=== PATIENT | male | born 2000 | race Two or more races ===

== ENCOUNTER → 2024-10-16 | Outpatient (CLI) | payer BC, SELFPAY ==
--- NOTE | 2024-10-16 | XR_ITS ---
Examination: Lumbar spine, 5 views Technique: Lumbar spine AP, lateral, coned lateral lower lumbar spine, bilateral obliques 5 views Exam date and time: October 16, 2024 1146 hours INDICATIONS: Low back pain radiating to the legs months. FINDINGS: Thoracolumbar levoscoliosis 8 degrees No lumbar fracture Mild diffuse lumbar disc narrowing No spondylolisthesis IMPRESSION: Mild diffuse lumbar disc narrowing
--- NOTE | 2024-10-16 | XR_ITS ---
Examination: Thoracic spine 3 views Technique one AP lateral coned lateral upper dorsal spine 3 views Exam date and time: October 16, 2024 1149 hours INDICATIONS: Mid back pain several months. FINDINGS: Thoracic dextroscoliosis 8 degrees No thoracic acute fracture No significant thoracic disc narrowing IMPRESSION: Thoracic dextroscoliosis 8 degrees
[2024-10-16 13:23] LABS: Collection Type, Urine Clean Catch
[2024-10-16 13:39] LABS: Basophils % (Auto) 0 % (0-2.5); Eosinophils # (Auto) 0.1 Thou/mm3 (0.0-0.5); Eosinophils % (Auto) 1 % (0-10); Hematocrit 42.3 % (41.0-53.0); Immature Granulocytes % (Auto) 0 % (0-0); Immature Granulocytes Auto 0.03 Thou/mm3 (0.00-0.00); Lymphocytes % (Auto) 20 % (10-50); Mean Corpuscular HGB Conc 33.1 g/dl (31.0-37.0); Mean Corpuscular Hemoglobin 26.3 pg (25.0-35.0); Mean Corpuscular Volume 80 fL (80-100); Monocytes # (Auto) 0.8 Thou/mm3 (0.0-0.8); Monocytes % (Auto) 8 % (0-12); Neutrophils # (Auto) 6.8 Thou/mm3 (1.8-7.7); Neutrophils % (Auto) 70 % (37-80); Nucleated Red Blood Cell % 0 /100 WBC (0); Platelet Count 349 Thou/mm3 (140-440); RDW Standard Deviation 40.9 fL (35.1-43.9); Red Blood Count 5.32 Miln/mm3 (4.50-5.90); White Blood Count 9.7 Thou/mm3 (3.8-10.6)
[2024-10-16 13:52] LABS: Bilirubin,Urine Negative (Negative); Blood,Urine Negative (Negative); Clarity,Urine Clear (Clear/Hazy); Color,Urine Lt-Yellow (Lt Yel-Yel); Culture Indicated,Urine Not Indicated; Glucose, Urine Negative (Negative); Ketones,Urine Negative (Negative); Leukocyte Esterase,Urine Positive (Negative); Nitrite,Urine Negative (Negative); PH,Urine 5.5 (5.0-7.0); Protein,Urine 1+ (Neg - Trace); RBC,Urine 3 /hpf (0-3); Specific Gravity,Urine 1.023 (1.001-1.035); Squamous Epithelial Cell,Urine < 1 /hpf (0-5); Urobilinogen,Urine Negative mg/dL (0.0-1.0); WBC,Urine 7 /hpf (0-5)
[2024-10-16 13:55] LABS: Sperm,Urine Present
[2024-10-16 14:02] LABS: Glucose Estimated Average 108 mg/dL (80-131); Hemoglobin A1C 5.4 % Hgb (4.8-6.0)
[2024-10-16 14:06] LABS: Alanine Aminotransferase 29 U/L (10-49); Albumin, Serum 5.2 gm/dL (3.5-5.0); Albumin/Globulin Ratio 1.5 (1.2-2.2); Alkaline Phosphatase 158 U/L (46-116); Anion Gap 11 (7-16); Aspartate Amino Transferase 21 U/L (0-34); BUN/Creatinine Ratio 15 Ratio (12-20); Bilirubin,Total 0.4 mg/dL (0.3-1.2); Blood Urea Nitrogen 15 mg/dL (9-23); C-Reactive Protein 4.3 mg/dL (0.0-0.9); Calcium 10.4 mg/dL (8.3-10.6); Calcium (Corrected) 10.4 mg/dL (8.5-10.1); Carbon Dioxide 26.2 mMol/L (20.0-31.0); Cardiac Risk Estimate 10.5 RATIO (4.0-6.7); Chloride 101 mMol/L (98-107); Cholesterol 442 mg/dL (132-200); Globulin 3.4 gm/dL (2.3-3.5); Glucose 86 mg/dL (74-106); HDL Cholesterol 42 mg/dL (40-60); LDL Cholesterol,Calculated 379 mg/dL (0-130); Osmolality,Calculated 275 (275-295); Sodium 138 mMol/L (136-145); Thyroid Stimulating Hormone 3.35 uIU/mL (0.55-4.78); Total Protein 8.6 gm/dL (5.7-8.2); Triglycerides 106 mg/dL (30-150); eGFR > 60 See Note
[2024-10-16 15:15] LABS: Vitamin D 25 Hydroxy Total 8.4 ng/mL (7.3-40.2)
[2024-10-16 15:44] LABS: RA Screen Negative (Negative)
[2024-10-23 06:24] LABS: ANA Screen, IFA NEGATIVE (NEGATIVE)
== END | disposition home or self-care (01) ==
LOC: CDIM 11:03 → COPL 12:00
PROVIDERS: PCP Registered Nurse; Referring Provider Registered Nurse; Visit Provider Radiology Diagnostic Radiology
DX: M41.84 Other forms of scoliosis, thoracic region (principal); M48.061 Spinal stenosis, lumbar region without neurogenic claudication; M79.18 Myalgia, other site; R79.89 Other specified abnormal findings of blood chemistry
CPT/HCPCS: 36415; 72072; 72110; 80053; 80061; 81001; 82306; 83036; 84443; 85025; 86038; 86140; 86430

== ENCOUNTER → 2024-12-04 | Outpatient (CLI) | payer BC, SELFPAY ==
[2024-12-04 13:29] LABS: Misc Send Out* See Sep Rpt
[2024-12-11 06:44] LABS: CCP Antibody (IgG)* <16 Units
== END | disposition home or self-care (01) ==
LOC: COPL 13:08
PROVIDERS: PCP Family Medicine; Referring Provider Internal Medicine Rheumatology; Visit Provider Internal Medicine Rheumatology
DX: M25.50 Pain in unspecified joint (principal)
CPT/HCPCS: 36415; 83516; 86015; 86038; 86160; 86200; 86225; 86235; 86255; 86376; 86430

== ENCOUNTER → 2024-12-19 | Outpatient (CLI) | payer BC, SELFPAY ==
[2024-12-19 10:36] LABS: Collection Type, Urine Clean Catch; Squamous Epithelial Cell,Urine 0 /hpf (0-5)
[2024-12-19 11:38] LABS: Bacteria,Urine 1+; Bilirubin,Urine Negative (Negative); Blood,Urine Negative (Negative); Clarity,Urine Clear (Clear/Hazy); Color,Urine Lt-Yellow (Lt Yel-Yel); Glucose, Urine Negative (Negative); Ketones,Urine Negative (Negative); Leukocyte Esterase,Urine Positive (Negative); Nitrite,Urine Negative (Negative); Protein,Urine Trace (Neg - Trace); RBC,Urine 3 /hpf (0-3); Specific Gravity,Urine 1.021 (1.001-1.035); Urobilinogen,Urine Negative mg/dL (0.0-1.0); WBC,Urine 13 /hpf (0-5)
[2024-12-19 11:42] LABS: Parathyroid Hormone Intact 58.3 pg/ml (18.5-88.0)
[2024-12-19 11:43] LABS: Calcium 9.7 mg/dL (8.3-10.6)
== END | disposition home or self-care (01) ==
LOC: COPL 09:46
PROVIDERS: PCP Family Medicine; Referring Provider Nurse Practitioner Family; Visit Provider Nurse Practitioner Family
DX: E83.52 Hypercalcemia (principal); R30.0 Dysuria
CPT/HCPCS: 36415; 81001; 82310; 83970; 87086

== ENCOUNTER → 2025-04-29 | Outpatient (CLI) | payer BC, SELFPAY ==
[2025-04-29 11:50] LABS: Cardiac Risk Estimate 11.2 RATIO (4.0-6.7); Cholesterol 448 mg/dL (132-200); HDL Cholesterol 40 mg/dL (40-60); LDL Cholesterol,Calculated 386 mg/dL (0-130); Triglycerides 112 mg/dL (30-150)
[2025-04-29 11:56] LABS: Vitamin D 25 Hydroxy Total 37.9 ng/mL (7.3-40.2)
== END | disposition home or self-care (01) ==
LOC: COPL 09:53
PROVIDERS: PCP Family Medicine; Referring Provider Registered Nurse; Visit Provider Registered Nurse
DX: E55.9 Vitamin D deficiency, unspecified (principal); E78.2 Mixed hyperlipidemia
CPT/HCPCS: 36415; 80061; 82306

== ENCOUNTER → 2025-05-13 | Outpatient (CLI) | payer BC, SELFPAY ==
[2025-05-13 10:45] LABS: Misc Send Out* See Sep Rpt
== END | disposition home or self-care (01) ==
LOC: COPL 10:17
PROVIDERS: PCP Family Medicine; Referring Provider Registered Nurse; Visit Provider Registered Nurse
DX: E78.2 Mixed hyperlipidemia (principal)
CPT/HCPCS: 82172; 83695

== ENCOUNTER → 2025-06-18 | Outpatient (CLI) | payer BC, SELFPAY ==
--- NOTE | 2025-06-18 10:30 | XR_ITS ---
Examination: MRI lumbar spine without contrast Date and time of exam: June 18, 2025 1130 hours INDICATIONS: Low back pain and paresthesias months Technique: Multiple MRI axial and sagittal sections lumbar spine. Sagittal T2-weighted images, TR 3500, TE 118 T1 weighted transverse sections, TR 688 T8.5, T2-weighted sagittal sections T1 weighted sagittal sections TR 621, TE 30 T2 axial sections, TR 4, 190, TE 84. Findings: Satisfactory alignment lumbar vertebral bodies. No lumbar fracture. No lumbar disc desiccation. No spondylolisthesis. L5-S1 2 mm right paracentral disc bulge More cephalad levels unremarkable IMPRESSION: L5-S1 2 mm right paracentral disc bulge
== END | disposition home or self-care (01) ==
LOC: SMRI 10:16
PROVIDERS: PCP Registered Nurse; Referring Provider Registered Nurse; Visit Provider Registered Nurse
DX: M51.370 Other intervertebral disc degeneration, lumbosacral region with discogenic back pain only (principal)
CPT/HCPCS: 72148

== ENCOUNTER → 2025-08-13 | Outpatient (BNVA) | payer BC, SELFPAY | END | disposition home or self-care (01) | PROVIDERS: PCP Family Medicine; Referring Provider Family Medicine; Visit Provider Urology | DX: Q55.61 Curvature of penis (lateral) (principal); R30.0 Dysuria; R35.0 Frequency of micturition | CPT/HCPCS: 99212; G0463 ==

== ENCOUNTER → 2025-09-12 | Outpatient (CLI) | payer BC, SELFPAY ==
--- NOTE | 2025-09-12 16:35 | XR_ITS ---
EXAM: Testicular ultrasound INDICATION: Pain. COMPARISON: 02/07/2024 FINDINGS: The right testicle measures 4.5 x 2.7 x 3.4 cm . There is normal arterial flow. No evidence of testicular masses. Right epididymal cyst measuring 3 mm epididymis is otherwise unremarkable. Left testicle measures 4.3 x 2.6 x 3.0 cm. There is normal arterial flow. No evidence of testicular masses. There is a 3 mm epididymal cyst. Epididymis is otherwise unremarkable. There is a mild left hydrocele IMPRESSION: Normal testicular vascular flow. No evidence of testicular masses. Mild left hydrocele
--- NOTE | 2025-09-12 16:40 | XR_ITS ---
EXAMINATION: PA lateral chest 2 views TECHNIQUE: Upright PA lateral chest 2 views Date and time: September 12, 2025, 0509 hours INDICATIONS: Coughing beginning 3 days ago. FINDINGS: Normal heart size Lungs are clear. Osseous structures are intact IMPRESSION: No active disease
== END | disposition home or self-care (01) ==
LOC: CDIM 16:30
PROVIDERS: PCP Registered Nurse; Referring Provider Registered Nurse; Visit Provider Registered Nurse
DX: R05.3 Chronic cough (principal); N50.819 Testicular pain, unspecified; N43.3 Hydrocele, unspecified
CPT/HCPCS: 71046; 76870